=== PATIENT | female | born 1940 | race Caucasian/White ===

== ENCOUNTER → 2017-06-26 | Outpatient (CLI) | payer MEDICARE, OTHER ==
[2017-06-26 12:47] LABS: ABSOLUTE EOSINOPHILS # (AUTO) 0.2 10^3/uL (0.0-0.6); ABSOLUTE LYMPHOCYTES (AUTO) 1.6 10^3/uL (0.5-4.7); ABSOLUTE MONOCYTES (AUTO) 0.8 10^3/uL (0.1-1.4); BASOPHILS % (AUTO) 0.6 % (0-2); EOSINOPHILS % (AUTO) 3.2 % (0-6); HEMATOCRIT 38.1 % (36.0-47.0); HEMOGLOBIN 12.8 g/dL (12.0-15.5); MEAN CORPUSCULAR HEMOGLOBIN 28.8 pg (27.0-33.4); MEAN CORPUSCULAR HGB CONC 33.6 g/dL (32.0-36.0); MEAN CORPUSCULAR VOLUME 86 fl (80-97); MONOCYTES % (AUTO) 10.8 % (3-13); PLATELET COUNT 180 10^3/uL (150-450); RED BLOOD COUNT 4.46 10^6/uL (3.72-5.28); RED CELL DISTRIBUTION WIDTH 14.6 % (11.5-14.0); SEGMENTED NEUTROPHILS % (AUTO) 64.4 % (42-78); TOTAL CELLS COUNTED % (AUTO) 100 %; WHITE BLOOD COUNT 7.8 10^3/uL (4.0-10.5)
[2017-06-26 13:10] LABS: ALANINE AMINOTRANSFERASE 42 U/L (9-52); ALKALINE PHOSPHATASE 143 U/L (38-126); ANION GAP 9 (5-19); ASPARTATE AMINO TRANSFERASE 51 U/L (14-36); BILIRUBIN,DIRECT 0.3 mg/dL (0.0-0.4); BILIRUBIN,TOTAL 0.6 mg/dL (0.2-1.3); BLOOD UREA NITROGEN 19 mg/dL (7-20); CALCIUM 10.2 mg/dL (8.4-10.2); CARBON DIOXIDE 28 mmol/L (22-30); CHLORIDE 103 mmol/L (98-107); GLUCOSE 121 mg/dL (75-110); POTASSIUM 5.4 mmol/L (3.6-5.0); SODIUM 140.3 mmol/L (137-145)
== END ==
LOC: OD 10:51
PROVIDERS: ATTEND Orthopaedic Surgery Hand Surgery
DX: E11.9 Type 2 diabetes mellitus without complications (principal); Z11.2 Encounter for screening for other bacterial diseases
CPT/HCPCS: 36415; 80053; 85025; 87070

== ENCOUNTER → 2017-10-10 | Outpatient (CLI) | payer MEDICARE, OTHER ==
--- NOTE | 2017-10-10 10:46 | RADIOLOGY REPORT (SQ) ---
EXAM DESCRIPTION: CT ABD/PELVIS WITH IV ORAL COMPLETED DATE/TIME: 10/10/2017 8:49 am REASON FOR STUDY: RLQ ABD MASS (R19.03 R19.03 RIGHT LOWER QUADRANT ABDOMINAL SWELLING, MASS AND LUM COMPARISON: 2016. TECHNIQUE: CT scan of the abdomen and pelvis performed with intravenous and oral contrast using corwin tamy scanning technique with dynamic intravenous contrast injection. Images reviewed with lung, soft t issue, and bone windows. Reconstructed coronal and sagittal MPR images reviewed. Delayed images for e valuation of the urinary system also acquired. All images stored on PACS. All CT scanners at this facility use dose modulation, iterative reconstruction, and/or weight based d osing when appropriate to reduce radiation dose to as low as reasonably achievable (ALARA). [facility]: Dose Right [facility]: CareDose [facility]: Dose Right [facility]: Teradose 4D [facility]: Freedom2 CONTRAST TYPE AND DOSE: contrast/concentration: Isovue 370.00 mg/ml; Total Contrast Delivered: 67.6 ml; Total Saline Delivered: 17.8 ml RENAL FUNCTION: Creatinine 0.8. RADIATION DOSE: CT Rad equipment meets quality standard of care and radiation dose reduction techniq ues were employed. CTDIvol: 26.0 - 29.2 mGy. DLP: 2714 mGy-cm.. LIMITATIONS: None. FINDINGS: LOWER CHEST: Lung bases clear. Mild cardiomegaly. Mild coronary calcification. Small hi atal hernia with suggestion of adjacent varices. LIVER: Macro nodular appearance. Small low density area in the tip of the right hepatic lobe measure s less than 1.5 cm, stable. No developing mass or abnormal enhancement. Mild perihepatic fluid. No nocclusive thrombus in the main portal vein with some minimal extension into the right portal vein. No gross superior mesenteric or splenic thrombus. IVC patent. SPLEEN: Normal size. No focal lesions. PANCREAS: No masses. No significant calcifications. No adjacent inflammation or peripancreatic fluid collections. Pancreatic duct not dilated. GALLBLADDER: Surgically absent. No duct dilatation. ADRENAL GLANDS: No significant masses or asymmetry. RIGHT KIDNEY AND URETER: No solid masses. No significant calcification. No hydronephrosis or hydroure ter. LEFT KIDNEY AND URETER: No solid masses. No significant calcification. No hydronephrosis or hydrouret er. AORTA AND VESSELS: No aneurysm. No dissection. Renal arteries, SMA, celiac without stenosis. RETROPERITONEUM: No retroperitoneal adenopathy, hemorrhage or masses. BOWEL AND PERITONEAL CAVITY: No evidence of mechanical bowel obstruction. Areas of wall thickening i n the colon. Most pronounced in the transverse colon. This may be artifact, related to liver diseas e and ascites. Colitis is in the differential, however. Mild ascites as above. No bulky adenopathy or free air. APPENDIX: Normal. PELVIS: Mild free fluid. Bladder unremarkable. ABDOMINAL WALL: Subcutaneous edema over the lower abdomen. No bowel containing hernia or mass detect ed. BONES: Osteopenia and spondylosis. OTHER: No other significant finding. IMPRESSION: 1. Findings consistent with cirrhosis and portal hypertension. Includes macro nodular l iver, varices and mild ascites. Note is also made of mild nonocclusive thrombus in the portal conflu ence. Other veins look patent. TECHNICAL DOCUMENTATION: JOB ID: [id number] Quality ID # [id number]: Final reports with documentation of one or more dose reduction techniques (e.g., Au tomated exposure control, adjustment of the mA and/or kV according to patient size, use of iterative reconstruction technique) 2010 [employer]- All Rights Reserved Reading location - IP/workstation name: [email or web address]
== END ==
LOC: RAD 07:54
PROVIDERS: ATTEND Physician Assistant
DX: R19.03 Right lower quadrant abdominal swelling, mass and lump (principal); K74.60 Unspecified cirrhosis of liver; K76.6 Portal hypertension; I85.00 Esophageal varices without bleeding
CPT/HCPCS: 74177; 82565

== ENCOUNTER → 2017-10-12 | Outpatient (CLI) | payer MEDICARE, OTHER | LOC: OD 14:29 | PROVIDERS: ATTEND Physician Assistant | DX: I49.9 Cardiac arrhythmia, unspecified (principal) | CPT/HCPCS: 36415; 82140 ==

== ENCOUNTER → 2018-02-25 | Outpatient (CLI) | payer MEDICARE, OTHER ==
[~2018-02-25] MED LIST: LIDOCAINE 2% INJ-PF (100 MG/5 ML) SYRINGE ONE; ONDANSETRON HCL INJ/PF 4 MG/2 ML SDV ONE; PROPOFOL INJ 200 MG/20 ML VIAL IV ONE
[2018-02-27 15:28] VITALS: BP 130/58
--- NOTE | 2018-02-27 19:35 | EKG REPORT ---
SEVERITY:- ABNORMAL ECG - SINUS RHYTHM RIGHT BUNDLE BRANCH BLOCK PROBABLE ANTEROSEPTAL INFARCT, AGE INDETERM : Confirmed by: Sharonda Toscano MD 27-Feb-2018 19:34:24
== END ==
LOC: LAB 10:40 → EDSTATUS 03-01 10:30
PROVIDERS: ATTEND Internal Medicine Gastroenterology
DX: Z01.810 Encounter for preprocedural cardiovascular examination (principal); Z01.812 Encounter for preprocedural laboratory examination; Z01.818 Encounter for other preprocedural examination
CPT/HCPCS: 93005; 93010; J2001; J2405; J2704

== ENCOUNTER → 2018-02-25 | Outpatient (CLI) | payer MEDICARE, OTHER ==
[2018-02-25 11:16] LABS: INTERNATIONAL RATION (INR) 1.22
[2018-02-25 11:27] LABS: ALANINE AMINOTRANSFERASE 53 U/L (9-52); ALBUMIN 3.5 g/dL (3.5-5.0); ALKALINE PHOSPHATASE 347 U/L (38-126); ANION GAP 11 (5-19); ASPARTATE AMINO TRANSFERASE 137 U/L (14-36); BILIRUBIN,TOTAL 1.5 mg/dL (0.2-1.3); BLOOD UREA NITROGEN 38 mg/dL (7-20); CALCIUM 9.8 mg/dL (8.4-10.2); CARBON DIOXIDE 24 mmol/L (22-30); CHLORIDE 100 mmol/L (98-107); GLUCOSE 157 mg/dL (75-110); POTASSIUM 5.3 mmol/L (3.6-5.0); TOTAL PROTEIN 7.3 g/dL (6.3-8.2)
[2018-02-26 11:39] LABS: HEPATITIS A AB IGM Negative (Negative); HEPATITIS B CORE AB IGM Negative (Negative); HEPATITS B SURFACE ANTIGEN Negative (Negative)
[2018-02-26 11:51] LABS: HEPATITIS C VIRUS ANTIBODY <0.1 s/co ratio (0.0-0.9)
[2018-02-26 13:35] LABS: ANTINUCLEAR ANTIBODIES Negative (Negative)
[2018-02-26 15:20] LABS: MITOCHONDRIAL (M2) ANTIBODY 6.7 Units (0.0-20.0)
[2018-02-26 18:47] LABS: CERULOPLASMIN 42.8 mg/dL (19.0-39.0)
== END ==
LOC: OD 10:26
PROVIDERS: ATTEND Internal Medicine Gastroenterology
DX: K74.60 Unspecified cirrhosis of liver (principal)
CPT/HCPCS: 36415; 80048; 80074; 80076; 82390; 82728; 85610; 86038; 86256

== ENCOUNTER 2018-03-06 03:58 | Inpatient (IN) | payer MEDICARE, OTHER ==
[2018-03-06] MEDS ORDERED: ONDANSETRON HCL INJ/PF 4 MG/2 ML SDV IV ONE (04:29)
--- NOTE | 2018-03-06 04:29 | ER Document Report ---
ED General - General Chief Complaint: Altered Mental Status Stated Complaint: WEAKNESS Time Seen by Provider: 03/06/18 04:19 Notes: Patient is a 77-year-old female that comes to the emergency department for chief complaint of a fall and altered mental status. Family member states that patient had been complaining of nausea and she vomited, later she called out to them and they found she had fallen face down on her floor in her bedroom, after this that she started acting confused and responding less, she vomited again in route to the emergency department. At baseline patient is not confused and is conversational, self-sufficient. Past medical history includes cirrhosis, esophageal varices, COPD, hypertension, type 2 diabetes. Family denies hematemesis. She is not on a blood thinner. Patient will answer some questions , she denies any locations of pain. TRAVEL OUTSIDE OF THE [place] IN LAST 30 DAYS: No - Related Data Allergies/Adverse Reactions: ciprofloxacin [From Cipro] Allergy (Severe, Verified 02/27/18 09:35) Rash, itching citalopram hydrobromide [From Celexa] Allergy (Severe, Verified 02/27/18 09:35) Rash, itching clarithromycin [From Biaxin] Allergy (Severe, Verified 02/27/18 09:35) Rash, itching telmisartan [From Micardis] Allergy (Severe, Verified 02/27/18 09:35) Rash, itching Past Medical History - General Information source: Patient - Social History Smoking Status: Never Smoker Frequency of alcohol use: None Drug Abuse: None Lives with: Family Family History: Reviewed & Not Pertinent Patient has suicidal ideation: No Patient has homicidal ideation: No - Past Medical History Cardiac Medical History: Reports: Hx Congestive Heart Failure, Hx Hypercholesterolemia, Hx Hypertension - on meds Denies: Hx Coronary Artery Disease, Hx Heart Attack Pulmonary Medical History: Reports: Hx COPD - on meds Denies: Hx Asthma, Hx Bronchitis, Hx Pneumonia Neurological Medical History: Denies: Hx Cerebrovascular Accident, Hx Seizures Endocrine Medical History: Reports: Hx Diabetes Mellitus Type 2 Renal/ Medical History: Denies: Hx Peritoneal Dialysis GI Medical History: Denies: Hx Hepatitis, Hx Hiatal Hernia, Hx Ulcer Musculoskeletal Medical History: Reports Hx Arthritis - Hands hx of Psychiatric Medical History: Reports: Hx Depression Infectious Medical History: Denies: Hx Hepatitis Past Surgical History: Reports: Hx Abdominal Surgery - hernia, Hx Cholecystectomy, Hx Herniorrhaphy, Hx Kidney (Renal Surgery), Hx Orthopedic Surgery. Denies: Hx Mastectomy, Hx Open Heart Surgery, Hx Pacemaker - Immunizations Hx Diphtheria, Pertussis, Tetanus Vaccination: Yes - 10/31/2012 Hx Pneumococcal Vaccination: 11/02/12 Review of Systems - Review of Systems Constitutional: See HPI EENT: No symptoms reported Cardiovascular: No symptoms reported Respiratory: No symptoms reported Gastrointestinal: See HPI Genitourinary: No symptoms reported Female Genitourinary: No symptoms reported Musculoskeletal: No symptoms reported Skin: No symptoms reported Hematologic/Lymphatic: No symptoms reported Neurological/Psychological: See HPI Physical Exam - Vital signs Vitals: Resp Pulse Ox 20 93 03/06/18 04:05 03/06/18 04:05 - Notes Notes: GENERAL: Patient restless, eyes closed, rolling back and forth on the bed HEAD: Normocephalic, atraumatic. EYES: Pupils equal, round, and reactive to light. Extraocular movements intact. ENT: Oral mucosa moist, tongue midline. NECK: Full range of motion. Supple. Trachea midline. LUNGS: Clear to auscultation bilaterally, no wheezes, rales, or rhonchi. No respiratory distress. HEART: Regular rate and rhythm. No murmur ABDOMEN: Soft, non-tender. Non-distended. Bowel sounds present in all 4 quadrants. EXTREMITIES: Moves all 4 extremities spontaneously. No edema, normal radial and dorsalis pedis pulses bilaterally. No cyanosis. Skin abrasion to right lateral forearm and proximal arm. 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 BACK: no cervical, thoracic, lumbar midline tenderness. No saddle anesthesia, normal distal neurovascular exam. NEUROLOGICAL: Alert and oriented x3. Normal speech. [cranial nerves II through XII grossly intact]. PSYCH: Normal affect, normal mood. SKIN: Warm, dry, normal turgor. No rashes or lesions noted. Course - Re-evaluation Re-evalutation: Patient obviously confused, follows minimal commands, disoriented and restless. Has skin abrasions over the right arm, old bruises over the face, no other traumatic findings noted over the back, abdomen, chest, extremities. Vital signs unremarkable. Patient immediately sent to CAT scan to rule out intracranial hemorrhage, this was negative, CAT scan of the neck unremarkable, chest x-ray unremarkable. CBC shows mild leukocytosis, chemistry shows mild renal insufficiency and mild hyperkalemia at 5.4. Suspect hepatic encephalopathy. Discussed with Dr. Griffin. Family states that patient stopped taking her Xifaxan 2-3 days ago, states she told them it was giving her diarrhea and she did not want to take it. Ammonia very elevated at 164, given lactulose. Urine shows infection, possible pyelonephritis, however patient is afebrile, not tachycardic, not hypotensive. Cultures placed. Given Rocephin. Discussed with family, will discuss with hospitalist for admission. 03/06/18 07:[address] Michelle, patient will be accepted to the hospital full admission. - Vital Signs Vital signs: Temp Pulse Resp BP Pulse Ox 21 H 152/86 H 95 03/06/18 06:15 03/06/18 06:15 03/06/18 06:15 - Laboratory Result Diagrams: 03/06/18 04:20 03/06/18 04:20 Laboratory results interpreted by me: 03/06/18 03/06/18 03/06/18 04:20 04:20 04:20 WBC 11.9 H Hgb 11.2 L Hct 33.2 L RDW 18.1 H Seg Neutrophils % 80.1 H Lymphocytes % 9.4 L Absolute Neutrophils 9.5 H PT 16.5 H APTT 36.6 H VBG pH Potassium 5.4 H BUN 40 H Creatinine 1.65 H Est GFR ( Amer) 36 L Est GFR (Non-Af Amer) 30 L Glucose 130 H Calcium 10.3 H Total Bilirubin 1.5 H Direct Bilirubin 1.1 H AST 122 H Alkaline Phosphatase 351 H Ammonia Urine Protein Urine Urobilinogen Ur Leukocyte Esterase 03/06/18 03/06/18 03/06/18 05:59 05:59 06:35 WBC Hgb Hct RDW Seg Neutrophils % Lymphocytes % Absolute Neutrophils PT APTT VBG pH 7.28 L Potassium BUN Creatinine Est GFR ( Amer) Est GFR (Non-Af Amer) Glucose Calcium Total Bilirubin Direct Bilirubin AST Alkaline Phosphatase Ammonia 164.2 H Urine Protein 100 H Urine Urobilinogen 2.0 H Ur Leukocyte Esterase LARGE H Discharge - Discharge Clinical Impression: Hepatic encephalopathy Altered mental status Qualifiers: Altered mental status type: unspecified Qualified Code(s): R41.82 - Altered mental status, unspecified Urinary tract infection Qualifiers: Urinary tract infection type: site unspecified Hematuria presence: without hematuria Qualified Code(s): N39.0 - Urinary tract infection, site not specified Condition: Serious Disposition: ADMITTED INPATIENT Admitting Provider: Hospitalist - Dr. Michelle Unit Admitted: Telemetry Referrals: CRYSTAL ADKINS MD [ACTIVE STAFF] - Follow up as needed
[2018-03-06 04:39] LABS: ABSOLUTE LYMPHOCYTES (AUTO) 1.1 10^3/uL (0.5-4.7); ABSOLUTE MONOCYTES (AUTO) 1.2 10^3/uL (0.1-1.4); ABSOLUTE NEUT (AUTO) 9.5 10^3/uL (1.7-8.2); BASOPHILS % (AUTO) 0.3 % (0-2); EOSINOPHILS % (AUTO) 0.2 % (0-6); HEMATOCRIT 33.2 % (36.0-47.0); HEMOGLOBIN 11.2 g/dL (12.0-15.5); LYMPHOCYTES % (AUTO) 9.4 % (13-45); MEAN CORPUSCULAR HEMOGLOBIN 28.1 pg (27.0-33.4); MEAN CORPUSCULAR HGB CONC 33.7 g/dL (32.0-36.0); MEAN CORPUSCULAR VOLUME 83 fl (80-97); PLATELET COUNT 273 10^3/uL (150-450); RED BLOOD COUNT 3.99 10^6/uL (3.72-5.28); RED CELL DISTRIBUTION WIDTH 18.1 % (11.5-14.0); SEGMENTED NEUTROPHILS % (AUTO) 80.1 % (42-78); TOTAL CELLS COUNTED % (AUTO) 100 %; WHITE BLOOD COUNT 11.9 10^3/uL (4.0-10.5)
[2018-03-06] MEDS ORDERED: MIDAZOLAM 2 MG/2 ML INJ IV ONE ×2 (04:39→04:41)
[2018-03-06 04:44] LABS: INTERNATIONAL RATION (INR) 1.27; PROTHROMBIN TIME 16.5 SEC (11.4-15.4)
[2018-03-06 04:45] LABS: PARTIAL THROMBOPLASTIN TIME 36.6 SEC (23.5-35.8)
[2018-03-06 05:04] LABS: ALANINE AMINOTRANSFERASE 45 U/L (9-52); ALBUMIN 3.6 g/dL (3.5-5.0); ALKALINE PHOSPHATASE 351 U/L (38-126); ANION GAP 10 (5-19); ASPARTATE AMINO TRANSFERASE 122 U/L (14-36); BILIRUBIN,DIRECT 1.1 mg/dL (0.0-0.4); BILIRUBIN,TOTAL 1.5 mg/dL (0.2-1.3); BLOOD UREA NITROGEN 40 mg/dL (7-20); CALCIUM 10.3 mg/dL (8.4-10.2); CARBON DIOXIDE 24 mmol/L (22-30); CHLORIDE 105 mmol/L (98-107); CREATINE KINASE 97 U/L (30-135); GLUCOSE 130 mg/dL (75-110); POTASSIUM 5.4 mmol/L (3.6-5.0); SODIUM 139.4 mmol/L (137-145); TOTAL PROTEIN 7.6 g/dL (6.3-8.2)
--- NOTE | 2018-03-06 05:06 | RADIOLOGY REPORT (SQ) ---
EXAM DESCRIPTION: XR CHEST 1 VIEW COMPLETED DATE/TME: 03/06/2018 04:27 CLINICAL HISTORY: AMS COMPARISON: None. FINDINGS: Single frontal view of the chest. Tortuosity thoracic aorta. Heart is not enlarged. Low lung volumes. Leads overlie the chest. No consolidation, pneumothorax, or pleural effusion. No displaced rib fractures identified. Upper abdominal soft tissues are unremarkable. IMPRESSION: 1. No acute pulmonary process identified.
--- NOTE | 2018-03-06 05:33 | RADIOLOGY REPORT (SQ) ---
CLINICAL DATA: 77-year-old female status post fall with head injury and confusion TECHNICAL DATA: Multiple axial CT images of the brain were performed followed by sagittal and coronal reconstructed images. The CT study is performed according to ALARA (as low as reasonably achievable) or ALARA/IMAGE GENTLY, with automatic adjustment of mA and/or kV according to patient size. Comparisons: Prior head CT performed on 08/10/2015.. FINDINGS: There is no evidence of mass, acute mass effect or midline shift. There are no acute extra-axial fluid collections. There is no evidence of acute intracranial hemorrhage. The cerebral sulci and ventricles are prominent consistent with mild cerebral volume loss. There are scattered patchy areas of decreased subcortical and periventricular attenuation most consistent with mild chronic microangiopathy.. . There is no significant mucosal thickening of the paranasal sinuses. The mastoid air cells are clear. The orbital contents are grossly unremarkable. No acute osseous abnormalities are identified. There appears to be a partially empty sella turcica. IMPRESSION: 1. There is no evidence of acute intracranial pathology. 2. Mild cerebral atrophy with findings consistent with chronic microangiopathy. Overall, no significant change since the prior study.
[2018-03-06] MEDS ORDERED: LORAZEPAM INJ 2 MG/1 ML VIAL IV ONE ×3 (05:42→08:45)
--- NOTE | 2018-03-06 05:42 | RADIOLOGY REPORT (SQ) ---
EXAM DESCRIPTION: CT cervical spine without contrast 03/06/2018 4:32 AM CDT CLINICAL HISTORY: 77 years, Female, fall, head injury COMPARISON: None. TECHNIQUE: Volumetric CT acquisition was performed through the cervical spine. Images in the axial, coronal, and sagittal planes were presented for interpretation. This exam was performed according to our departmental dose-optimization program, which includes automated exposure control, adjustment of the mA and/or kV according to patient size and/or use of iterative reconstruction technique. FINDINGS: There are 7 cervical type vertebral bodies in normal anatomic alignment. There is no evidence of acute fracture or dislocation. There are degenerative changes throughout the mid and lower cervical spine. At the C2/C3 level, there is normal disc space height with mild uncovertebral hypertrophy bilaterally. There is mild neural foraminal narrowing on the right and no significant narrowing of the left. At the C3/C4 level, there is loss of disc space height with a small left paracentral disc osteophyte complex. There is moderate uncovertebral hypertrophy on the left. There is moderate neural foraminal narrowing on the left and no significant osteophyte. At the C4/C5 level, there is loss of disc space height with mild uncovertebral hypertrophy bilaterally. There is mild neural foraminal narrowing on the left and no significant narrowing on the right. At the C5/C6 level, there is normal disc space height with mild uncovertebral hypertrophy bilaterally. There is no significant canal or neural foraminal narrowing bilaterally. At the C6/C7 level, there is loss of disc space height with a moderate broad-based disc osteophyte complex. There is mild uncovertebral hypertrophy on the left. There is moderate neuroforaminal narrowing on the left and no significant narrowing of the right. The paravertebral and prevertebral soft tissues are normal. There are no fluid collections or evidence of soft tissue thickening. The musculature and soft tissue structures of the neck are within normal limits. There are no pathologically enlarged lymph nodes. The visualized vasculature is normal. The visualized portions of the brain and skull base are grossly unremarkable. Limited evaluation of the lung apices demonstrate no gross abnormalities. IMPRESSION: 1. No acute fracture or dislocation of the cervical spine. 2. Multilevel degenerative changes.
[2018-03-06 06:24] LABS: VENOUS BLOOD BASE EXCESS -2.8 mmol/L; VENOUS BLOOD HCO3 24.3 mmol/L (20-32); VENOUS BLOOD PCO2 53.1 mmHg (35-63); VENOUS BLOOD PH 7.28 (7.30-7.42)
[2018-03-06] MEDS ORDERED: LACTULOSE SYRUP 20 GM/30 ML UDCUP PR ONE ×2 (06:45→08:15)
[2018-03-06 07:08] LABS: APPEARANCE,URINE TURBID; BILIRUBIN,URINE NEGATIVE (NEGATIVE); COLOR,URINE AMBER; GLUCOSE, URINE NEGATIVE (NEGATIVE); KETONES,URINE NEGATIVE (NEGATIVE); LEUKOCYTE ESTERASE,URINE LARGE (NEGATIVE); NITRITE,URINE NEGATIVE (NEGATIVE); PROTEIN,URINE 100 mg/dL (NEGATIVE); URINE SPECIFIC GRAVITY 1.017
[2018-03-06] MEDS ORDERED: CEFTRIAXONE INJ 1000 MG VIAL IV ONE (07:23)
[2018-03-06] MEDS ORDERED: DEXTROSE 50%-WATER 25 GM/50 ML DISP.SYRIN IV PRN ×6 (09:15→09:29)
[2018-03-06] MEDS ORDERED: DEXTROSE 40% GEL 15 GM TUBE PO PRN ×6 (09:15→09:29)
[2018-03-06] MEDS ORDERED: GLUCAGON,HUMAN RECOMB 1 MG INJ SUBCUT PRN (09:15)
[2018-03-06] MEDS ORDERED: HALOPERIDOL LACTATE INJ 5 MG/1 ML VIAL IV PRN (09:20)
[2018-03-06] MEDS ORDERED: GLUCAGON,HUMAN RECOMB 1 MG INJ IM PRN ×2 (09:20→09:29)
[2018-03-06] MEDS ORDERED: INSULIN LISPRO 100 UNIT/ML 3 ML VIAL SUBCUT PRN (09:20)
[2018-03-06] MEDS ORDERED: CEFTRIAXONE 1 GM/D5W RTU 50 ML IV SCH (10:00)
[2018-03-06] MEDS ORDERED: NORMAL SALINE 1000 ML 1,000 ML IV ONE ×2 (10:30→11:30)
--- NOTE | 2018-03-06 11:04 | EKG REPORT ---
SEVERITY:- ABNORMAL ECG - SINUS RHYTHM RIGHT BUNDLE BRANCH BLOCK : Confirmed by: Chuck Suero 06-Mar-2018 11:04:00
[2018-03-06] MEDS ORDERED: NORMAL SALINE 500 ML with OCTREOTIDE ACETATE 500 MCG IV PRN ×2 (11:17)
[2018-03-06] MEDS ORDERED: PROPOFOL INJ 200 MG/20 ML VIAL IV ONE (11:59)
[2018-03-06 12:01] LABS: ARTERIAL BLOOD BASE EXCESS -13.3 mmol/L; ARTERIAL BLOOD FIO2 15L; ARTERIAL BLOOD H2CO3 1.02 mmol/L (1.05-1.35); ARTERIAL BLOOD HCO3 13.4 mmol/L (20-24); ARTERIAL BLOOD O2 SATURATION 97.1 % (94-98); ARTERIAL BLOOD PCO2 33.8 mmHg (35-45); ARTERIAL BLOOD PH 7.22 (7.35-7.45); ARTERIAL BLOOD PO2 109.5 mmHg (80-100); ARTERIAL BLOOD TOTAL CO2 14.4 mmol/L (21-25)
[2018-03-06] MEDS: MIDAZOLAM HCL 50 MG/100 ML RTUINJ IV PRN ×2 (12:15→18:50)
--- NOTE | 2018-03-06 12:26 | RADIOLOGY REPORT (SQ) ---
EXAM DESCRIPTION: CHEST SINGLE VIEW COMPLETED DATE/TIME: 03/06/2018 12:14 pm REASON FOR STUDY: er 8 tube placement COMPARISON: CT chest 02/12/2014 Chest films 03/06/2018 EXAM PARAMETERS: NUMBER OF VIEWS: One view. TECHNIQUE: Single frontal radiographic view of the chest acquired. RADIATION DOSE: NA LIMITATIONS: None. FINDINGS: LUNGS AND PLEURA: Airspace disease in the right middle and lower lobe, edema versus pneumo jena. Left lung grossly clear. No pleural effusion or pneumothorax MEDIASTINUM AND HILAR STRUCTURES: No masses. Contour normal. HEART AND VASCULAR STRUCTURES: Moderate cardiomegaly BONES: No acute findings. HARDWARE: Endotracheal tube tip midtrachea. Nasogastric tube tip and side port in the stomach OTHER: No other significant finding. IMPRESSION: Endotracheal and nasogastric tubes in good positioning. Asymmetric right-sided middle and lower lobe airspace disease, aspiration pneumonia versus asymmetric pulmonary edema TECHNICAL DOCUMENTATION: JOB ID: [id number] [employer]- All Rights Reserved Reading location - IP/workstation name: [email or web address]
[2018-03-06] MEDS ORDERED: FENTANYL CITRATE INJ/PF 100 MCG/2 ML AMPUL ONE (12:38)
[2018-03-06] MEDS ORDERED: NOREPINEPHRINE BITARTRATE INJ/PF 4 MG/4 ML SDV IV ONE (12:50)
[2018-03-06] MEDS ORDERED: FENTANYL CITRATE INJ/PF 100 MCG/2 ML AMPUL IV PRN (12:52)
[2018-03-06] MEDS ORDERED: VANCOMYCIN HCL 0 MG in DEXTROSE 5%-WATER 250 ML IV NR (13:00)
[2018-03-06] MEDS: DEXTROSE 5%-WATER 250 ML with NOREPINEPHRINE BITARTRATE 4 MG IV PRN ×6 (13:00→23:40)
[2018-03-06] MEDS ORDERED: SUCCINYLCHOLINE CHLORIDE INJ 200 MG/10 ML VIAL ONE (13:57)
[2018-03-06] MEDS ORDERED: DEXTROSE 5%-WATER 250 ML with NOREPINEPHRINE BITARTRATE 4 MG IV PRN ×2 (14:21)
[2018-03-06] MEDS: HEPARIN SOD (PORCINE) 5,000 UNIT/ML 1 ML SYRINGE SUBCUT SCH ×2 (15:05→22:57)
[2018-03-06] MEDS ORDERED: LEVALBUTEROL HCL NEB 1.25 MG/3 ML AMPUL NEB PRN (15:22)
[2018-03-06] MEDS: DEXTROSE 5%-WATER 250 ML with PHENYLEPHRINE HCL 40 MG IV PRN ×2 (16:15)
--- NOTE | 2018-03-06 16:24 | RADIOLOGY REPORT (SQ) ---
EXAM DESCRIPTION: CHEST SINGLE VIEW COMPLETED DATE/TIME: 03/06/2018 3:48 pm REASON FOR STUDY: central line, ETT and OG tube placement COMPARISON: AP chest 03/06/2018, 12 noon EXAM PARAMETERS: NUMBER OF VIEWS: One view. TECHNIQUE: Single frontal radiographic view of the chest acquired. RADIATION DOSE: NA LIMITATIONS: None. FINDINGS: LUNGS AND PLEURA: Persistent consolidation in the right middle and lower lobe. Remainder of the lungs are well inflated and clear. No pleural effusions. No pneumothorax. MEDIASTINUM AND HILAR STRUCTURES: No masses. Contour normal. HEART AND VASCULAR STRUCTURES: Stable cardiomegaly BONES: No acute findings. HARDWARE: Endotracheal tube tip 5 cm above the iglesia. Right jugular central line tip in the right a trium. Nasogastric tube tip and side port in the stomach. OTHER: No other significant finding. IMPRESSION: Interval placement of a right-sided triple-lumen catheter with the tip in the right atri um. No pneumothorax. Endotracheal tube nasogastric tube in good positioning Persisting consolidation in the right middle and lower lobe, unchanged from earlier today TECHNICAL DOCUMENTATION: JOB ID: [id number] [employer]- All Rights Reserved Reading location - IP/workstation name: [email or web address]
[2018-03-06] MEDS: LACTULOSE SYRUP 20 GM/30 ML UDCUP PR SCH (16:30)
[2018-03-06] MEDS ORDERED: LANSOPRAZOLE 15 MG TAB.RAP.DR PO SCH (17:00)
[2018-03-06] MEDS ORDERED: FENTANYL CITRATE INJ/PF 100 MCG/2 ML AMPUL IV ONE (17:00)
[2018-03-06 17:02] LABS: ARTERIAL BLOOD BASE EXCESS -13.6 mmol/L; ARTERIAL BLOOD H2CO3 0.53 mmol/L (1.05-1.35); ARTERIAL BLOOD HCO3 9.5 mmol/L (20-24); ARTERIAL BLOOD O2 SATURATION 98.3 % (94-98); ARTERIAL BLOOD PH 7.35 (7.35-7.45); ARTERIAL BLOOD PO2 119.8 mmHg (80-100); ARTERIAL BLOOD TOTAL CO2 10.1 mmol/L (21-25)
[2018-03-06 17:09] LABS: ARTERIAL BLOOD FIO2 75%
[2018-03-06 17:11] LABS: ARTERIAL BLOOD PCO2 17.7 mmHg (35-45)
--- NOTE | 2018-03-06 17:51 | OPERATIVE REPORT E ---
Operative Report NAME: NARGIS DUNLAP : 1940 AGE: 77Y DATE OF SURGERY: 03/06/2018 ROOM: [facility] PREOPERATIVE DIAGNOSIS: POOR VEINS FOR IV ACCESS AND PATIENT NEEDED PRESSORS. POSTOPERATIVE DIAGNOSIS: POOR VEINS FOR IV ACCESS AND PATIENT NEEDED PRESSORS. OPERATION: Placement of right internal jugular vein triple-lumen catheter under ultrasound guidance. SURGEON: NICOLE MANN M.D. ANESTHESIA: Local. INDICATIONS: This is a 77-year-old female who was noted to be hypotensive in the intensive care unit after she was intubated. She has only 1 line available and needed more IV access, especially as patient will need pressors. The IV also appears to be tentative. PROCEDURE: Patient was placed in just a flat position, since the bed could not be Trendelenburg. Right side of the neck was then prepped and draped in the usual sterile fashion. With the use of the ultrasound, the right internal jugular vein was then identified and lidocaine infiltrated along the skin, where the internal jugular vein appears to be. The internal jugular vein was then punctured with a small needle and the small guidewire passed through the needle into the area of the superior vena cava. The puncture site was subsequently enlarged. A triple-lumen catheter was inserted through the guidewire towards the superior vena cava. About 6 cm of the catheter was threaded through the internal jugular vein. Guidewire was removed and all the 3 ports aspirated, bled easily and instilled saline easily. The catheter was then anchored to the skin with 3-0 silk. Sterile Bio Patch and dressing were then placed over the catheter. Chest x-ray will be obtained for placement. Patient tolerated procedure well. DICTATING PHYSICIAN: NICOLE MANN M.D. [id number] PHY#: [id number] ID: [id number] JOB#: [id number] ACCT: [id number] cc:NICOLE MANN M.D. >
[2018-03-06] MEDS ORDERED: VANCOMYCIN HCL 750 MG in DEXTROSE 5%-WATER 250 ML IV SCH (18:00)
[2018-03-06] MEDS: PIPERACILLIN SODIUM/TAZOBACTAM 3.375 GM in NORMAL SALINE 100 ML IV SCH (18:14)
--- NOTE | 2018-03-06 18:16 | PDOC H&P ---
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 Travis her cna instructor as outpatient. Source of history is daughter who is living with the patient. Patient was brought in by family after at 1:30 AM last night they heard her yelling and found her on the floor. Patient is on rifaximin for her cirrhosis however she stopped it about 3 days ago because it was making her nauseous. 2 days ago she had one episode of nonbilious, nonbloody vomiting and also for the last week she has been complaining of feeling weak. Per daughter who is a primary caregiver she was not complaining of any fever, chest pain, shortness of breath, abdominal pain, diarrhea, constipation or any urinary symptoms. As per family patient is incontinent and has had bladder surgery with recurrent UTIs. At baseline patient is independent however living with her daughter here at [facility]. She still drives and manages his her finances. On my initial encounter ED patient was altered, restless and agitated and agitated. Was noticed to have increased labored breathing, nursing staff were not able to get any of her vitals because of her restlessness and agitation. Patient was intubated for airway protection. While in ED patient also dropped her blood pressure and she was given 2 normal saline boluses and started on Levophed. Past Medical History Cardiac Medical History: Reports: Congestive Heart Failure, Hyperlipidema, Hypertension - on meds Denies: Coronary Artery Disease, Myocardial Infarction Pulmonary Medical History: Reports: Chronic Obstructive Pulmonary Disease (COPD ) - on meds Denies: Asthma, Bronchitis, Pneumonia Neurological Medical History: Denies: Seizures Endocrine Medical History: Reports: Diabetes Mellitus Type 2 GI Medical History: Denies: Hepatitis, Hiatal Hernia Musculoskeltal Medical History: Reports: Arthritis - Hands hx of Psychiatric Medical History: Reports: Depression Hematology: Denies: Anemia, Sickle Cell Disease Past Surgical History Past Surgical History: Reports: Cholecystectomy, Herniorrhaphy, Orthopedic Surgery Denies: Amputation, Mastectomy, Pacemaker Social History Lives with: Family Smoking Status: Never Smoker Frequency of Alcohol Use: None Hx Recreational Drug Use: No Hx Prescription Drug Abuse: No - Advance Directive Resuscitation Status: Full Code Surrogate healthcare decision maker:: Had a conversation with her daughter who has medical power of claims attorney. My initial conversation with daughter and her they stated that she is full code. Later in the day with my second conversation with her she stated she may have been well and she has contacted her sister to find it. Family History Family History: Reviewed & Not Pertinent Parental Family History Reviewed: Yes Children Family History Reviewed: Yes Sibling(s) Family History Reviewed.: Yes Medication/Allergy Home Medications: Amlodipine Besylate [Norvasc 5 mg Tablet] 5 mg PO QPM 03/06/18 Atorvastatin Calcium [Lipitor 10 mg Tablet] 10 mg PO QPM 03/06/18 Benazepril HCl [Lotensin] 10 mg PO QAM 03/06/18 Cinnamon Bark [Cinnamon] 1,000 mg PO BID 03/06/18 Fluticasone/Salmeterol [Advair 500-50 Diskus 28 Dose] 1 inh IH Q12 03/06/18 Furosemide [Lasix 40 mg Tablet] 40 mg PO QAM 03/06/18 Glipizide [Glocotrol 5 Mg Tablet] 5 mg PO QPM 03/06/18 Glipizide [Glocotrol 5 Mg Tablet] 10 mg PO QAM 03/06/18 Linagliptin [Tradjenta] 5 mg PO QAM 03/06/18 Montelukast Sodium [Singulair 10 mg Tablet] 10 mg PO QPM 03/06/18 Multivit-Minerals/Folic Acid [One Daily Womens 50 Plus Tab] 0.4 mg PO DAILY 08/19 Rifaximin [Xifaxan 550 mg Tablet] 550 mg PO BID 03/06/18 Ropinirole HCl [Requip] 3 mg PO QPM 03/06/18 Spironolactone [Aldactone] 100 mg PO QAM 03/06/18 Tiotropium Advance [Spiriva Respimat] 4 gm IH DAILY 03/06/18 Venlafaxine HCl ER [Effexor Xr 75 mg Cap.sr] 75 mg PO Q12 03/06/18 Vit C/Vitamin E Acetate/Cranb [Cranberry+ Softgel] 1 each PO BID 03/06/18 Allergies/Adverse Reactions: ciprofloxacin [From Cipro] Allergy (Severe, Verified 02/27/18 09:35) Rash, itching citalopram hydrobromide [From Celexa] Allergy (Severe, Verified 02/27/18 09:35) Rash, itching clarithromycin [From Biaxin] Allergy (Severe, Verified 02/27/18 09:35) Rash, itching telmisartan [From Micardis] Allergy (Severe, Verified 02/27/18 09:35) Rash, itching Review of Systems ROS unobtainable: Due to mental status Physical Exam Vital Signs: Temp Pulse Resp BP Pulse Ox 98.4 F 62 30 H 76/43 L 96 03/06/18 14:42 03/06/18 14:42 03/06/18 14:42 03/06/18 14:42 03/06/18 15:55 Intake & Output 03/05/18 03/06/18 03/07/18 06:59 06:59 06:59 Intake Total 1136 Balance 1136 Weight 104 kg General appearance: PRESENT: severe distress Head exam: PRESENT: other - Left temporal ecchymosis. Respiratory exam: PRESENT: accessory muscle use, decreased breath sounds, symmetrical Cardiovascular exam: PRESENT: RRR. ABSENT: diastolic murmur, rubs, systolic murmur Pulses: PRESENT: normal dorsalis pedis pul GI/Abdominal exam: PRESENT: distended, hernia, normal bowel sounds, soft. ABSENT: guarding, mass, organolmegaly, rebound Extremities exam: PRESENT: full ROM. ABSENT: calf tenderness, clubbing, pedal edema Musculoskeletal exam: PRESENT: normal inspection Neurological exam: PRESENT: altered, other - Moves all extremities. Psychiatric exam: PRESENT: agitated Skin exam: PRESENT: abrasion, other - lt temporal ecchymosis Results Laboratory Results: 03/06/18 03/06/18 03/06/18 11:40 13:39 16:45 Carbonic Acid 1.02 L 0.53 L HCO3/H2CO3 Ratio 13:1 17:1 ABG pH 7.22 L 7.35 ABG pCO2 33.8 L 17.7 L* ABG pO2 109.5 H 119.8 H ABG HCO3 13.4 L 9.5 L ABG O2 Saturation 97.1 98.3 H ABG Base Excess -13.3 -13.6 FiO2 15L 75% Lactic Acid 9.4 H Impressions: Cervical Spine CT 03/06/18 04:26 IMPRESSION: 1. No acute fracture or dislocation of the cervical spine. 2. Multilevel degenerative changes. Head CT 03/06/18 04:26 IMPRESSION: 1. There is no evidence of acute intracranial pathology. 2. Mild cerebral atrophy with findings consistent with chronic microangiopathy. Overall, no significant change since the prior study. Chest X-Ray 03/06/18 04:27 IMPRESSION: 1. No acute pulmonary process identified. Assessment & Plan - Diagnosis (1) Septic shock Is this a current diagnosis for this admission?: Yes Plan: Unidentified source. Mild leukocytosis. UA positive for leukocyte esterase however patient has history of incontinence. Status post 2 L IV bolus. Avoid aggressive volume resuscitation due to underlying cirrhosis and new DONALD. Currently on Levophed and phenylephrine. On Vanco and Zosyn. Follow-up blood and urine culture. (2) Urinary tract infection Qualifiers: Urinary tract infection type: site unspecified Hematuria presence: without hematuria Qualified Code(s): N39.0 - Urinary tract infection, site not specified Is this a current diagnosis for this admission?: Yes Plan: UA positive for leukocyte esterase. Start on Vanco and Zosyn. Patient has history of urinary incontinence. (3) Dyslipidemia Is this a current diagnosis for this admission?: Yes Plan: Start on statins (4) Hx of cirrhosis Plan: As per daughter patient was diagnosed with cirrhosis about 4 months ago. Most likely cryptogenic as the patient's daughter stated that her mom was not an alcoholic and her hepatitis panel, anti-smooth muscle antibody, antimitochondrial antibody has been negative. Patient has had a history of variceal bleeding and she is status post 2 pending and another one scheduled as outpatient with Dr. Travis (5) Hepatic encephalopathy Is this a current diagnosis for this admission?: Yes Plan: Most likely due to noncompliance patient has not been taking her rifaximin for the last 3-4 days due to nausea. Abated ammonia on admission. Continue lactulose. CT head and neck negative for any acute changes. (6) Lactic acidosis Is this a current diagnosis for this admission?: Yes Plan: Likely due to underlying septic shock. Treat underlying infectious process. (7) DONALD (acute kidney injury) Is this a current diagnosis for this admission?: Yes Plan: Likely prerenal. Patient was found to be hypotensive due to underlying sepsis. Will obtain urine sodium and urine creatinine. Followed by renal ultrasound. Monitor electrolytes and volume status.
[2018-03-06 18:44] LABS: CREATINE KINASE MB 9.28 ng/mL (<4.55)
[2018-03-06 18:54] LABS: TROPONIN I 4.82 ng/mL
[2018-03-06 19:08] LABS: URINE CREATININE 165.9 mg/dL (15-278)
[2018-03-06] MEDS ORDERED: CALCIUM GLUCONATE 1000 MG/10 ML INJ IV ONE ×2 (19:10→19:15)
[2018-03-06] MEDS ORDERED: DEXTROSE 5%-WATER 250 ML with VASOPRESSIN 100 UNIT IV PRN ×2 (19:12)
[2018-03-06] MEDS ORDERED: FLUTICASONE/SALMETEROL DISKUS 500-50 MCG/DOSE IH SCH (22:00)
[2018-03-06] MEDS ORDERED: PANTOPRAZOLE SODIUM 40 MG VIAL IV SCH (22:00)
[2018-03-06] MEDS ORDERED: VENLAFAXINE HCL 75 MG CAP.SR.24H PO SCH (22:00)
--- NOTE | 2018-03-06 22:11 | RADIOLOGY REPORT (SQ) ---
CT abdomen and pelvis without contrast on 03/06/2018 at 8:57 PM CLINICAL INDICATION: Abdominal distention, history of esophageal varices TECHNIQUE: Multiple axial images are obtained throughout the abdomen and pelvis without the administration of contrast. This exam was performed according to our departmental dose-optimization program, which includes automated exposure control, adjustment of the mA and/or kV according to patient size and/or use of iterative reconstruction technique. Total DLP is 1361.71 mGy*cm. COMPARISON: 10/10/2017 FINDINGS: Abdomen: There has been development of a moderate-sized right pleural effusion with a trace left pleural effusion. There is right greater than left basilar atelectasis. There is a moderate amount of ascites throughout the abdomen and pelvis. Anasarca is noted in the subcutaneous tissues. The patient is status post cholecystectomy. There is an irregular contour of the liver consistent with changes of cirrhosis. NG tube extends into the distal stomach. Vascular calcifications are noted. The unenhanced solid abdominal organs are otherwise unremarkable. There is no free air within the abdomen. There is no abdominal adenopathy. The abdominal portion of the GI tract is unremarkable. Pelvis: Moderate to large amount of ascites is noted in the pelvis. Rectal tube is noted in place. Pelvic organs appear unremarkable by CT. There is no pelvic adenopathy. Pelvic portion of the GI tract is unremarkable. Degenerative changes are noted in the spine. There is grade 1 spondylolisthesis at L4-5 and L5-S1 secondary to degenerative facet disease. IMPRESSION: 1. Right greater than left pleural effusions with anasarca and ascites consistent with some volume overload and/or third spacing. 2. Irregular contour of the liver consistent with changes of cirrhosis.
[2018-03-06] MEDS ORDERED: FUROSEMIDE INJ/PF 40 MG/4 ML SDV IV ONE (22:30)
[2018-03-07] MEDS: DEXTROSE 5%-WATER 250 ML with PHENYLEPHRINE HCL 40 MG IV PRN ×2 (00:40)
[2018-03-07] MEDS: MIDAZOLAM HCL 50 MG/100 ML RTUINJ IV PRN (00:44)
[2018-03-07] MEDS: LACTULOSE SYRUP 20 GM/30 ML UDCUP PR SCH ×2 (00:47→06:39)
[2018-03-07] MEDS: PIPERACILLIN SODIUM/TAZOBACTAM 3.375 GM in NORMAL SALINE 100 ML IV SCH ×2 (00:48→06:40)
[2018-03-07 01:40] LABS: CREATINE KINASE MB 13.5 ng/mL (<4.55)
[2018-03-07 01:43] LABS: TROPONIN I 8.76 ng/mL
[2018-03-07] MEDS ORDERED: ATROPINE SULFATE INJ 1 MG/10 ML DISP.SYRIN IV ONE ×3 (02:00→02:45)
[2018-03-07] MEDS ORDERED: SODIUM BICARBONATE 8.4% INJ 50 MEQ/50 ML DISP.SYRIN ONE (02:00)
[2018-03-07] MEDS ORDERED: EPINEPHRINE INJ 1 MG/10 ML DISP.SYRIN ONE (02:00)
[2018-03-07] MEDS ORDERED: EPINEPHRINE INJ/PF 1 MG/1 ML AMPULE ONE (02:26)
[2018-03-07] MEDS ORDERED: DEXTROSE 50%-WATER 25 GM/50 ML DISP.SYRIN IV ONE (02:40)
[2018-03-07] MEDS ORDERED: ATROPINE SULFATE INJ 1 MG/1 ML VIAL ONE (02:44)
[2018-03-07 03:01] LABS: ALBUMIN 2.7 g/dL (3.5-5.0); ALKALINE PHOSPHATASE 539 U/L (38-126); BILIRUBIN,TOTAL 3.3 mg/dL (0.2-1.3); BLOOD UREA NITROGEN 37 mg/dL (7-20); CALCIUM 8.7 mg/dL (8.4-10.2); CHLORIDE 109 mmol/L (98-107); GLUCOSE 72 mg/dL (75-110); SODIUM 141.1 mmol/L (137-145); TOTAL PROTEIN 6.2 g/dL (6.3-8.2)
[2018-03-07 03:10] LABS: HEMATOCRIT 32.6 % (36.0-47.0); HEMOGLOBIN 9.7 g/dL (12.0-15.5); MEAN CORPUSCULAR HEMOGLOBIN 28.3 pg (27.0-33.4); MEAN CORPUSCULAR HGB CONC 29.9 g/dL (32.0-36.0); PLATELET COUNT 196 10^3/uL (150-450); RED BLOOD COUNT 3.44 10^6/uL (3.72-5.28); RED CELL DISTRIBUTION WIDTH 19.8 % (11.5-14.0)
[2018-03-07 03:13] LABS: INTERNATIONAL RATION (INR) 3.23; PROTHROMBIN TIME 34.5 SEC (11.4-15.4)
[2018-03-07 03:14] LABS: MEAN CORPUSCULAR VOLUME 95 fl (80-97); WHITE BLOOD COUNT 25.4 10^3/uL (4.0-10.5)
[2018-03-07 03:29] LABS: ALANINE AMINOTRANSFERASE 2760 U/L (9-52); POTASSIUM 7.1 mmol/L (3.6-5.0)
[2018-03-07 03:30] LABS: CARBON DIOXIDE 8 mmol/L (22-30)
[2018-03-07 03:31] LABS: ASPARTATE AMINO TRANSFERASE 12803 U/L (14-36)
[2018-03-07 03:35] LABS: ANION GAP 24 (5-19)
[2018-03-07 03:37] LABS: ABSOLUTE LYMPHOCYTES# (MANUAL) 5.8 10^3/uL (0.5-4.7); ABSOLUTE MONOCYTES # (MANUAL) 1.5 10^3/uL (0.1-1.4); BAND NEUTROPHILS % (MANUAL) 3 % (3-5); BASOPHILS % (MANUAL) 0 % (0-2); EOSINOPHILS % (MANUAL) 0 % (0-6); LYMPHOCYTES % (MANUAL) 22 % (13-45); MONOCYTES % (MANUAL) 6 % (3-13); SEGMENTED NEUTROPHILS % (MAN) 68 % (42-78); TOTAL CELLS COUNTED 100; TOXIC GRANULATION 1+; TOXIC VACUOLATION PRESENT
[2018-03-07 03:38] LABS: ANISOCYTOSIS 2+; BURR CELLS 2+; PLATELET COMMENT ADEQUATE; PLATELET GIANT PRESENT; PLATELET LARGE PRESENT; POIKILOCYTOSIS 1+; POLYCHROMASIA SLIGHT; SCHISTOCYTES SLIGHT
[2018-03-07 06:12] VITALS: BP 76/51
[2018-03-07] MEDS: HEPARIN SOD (PORCINE) 5,000 UNIT/ML 1 ML SYRINGE SUBCUT SCH (06:39)
[2018-03-07] MEDS ORDERED: CEFTRIAXONE SODIUM 1,000 MG in NORMAL SALINE 50 ML IV SCH (08:00)
--- NOTE | 2018-03-07 08:26 | PDOC CONSULTATION ---
Consultation Consult Date: 03/06/18 Attending physician:: INDIA MEANS Consult reason:: Respiratory failure/sepsis History of Present Illness Admission Date/PCP: 03/06/18 08:16 SUSAN DUVALL PA-C History of Present Illness: NARGIS DUNLAP is a 77 year old female, presented to the emergency room confused and agitated and required sedation and intubation she is hypotensive and appeared to be in hepatic encephalopathy she is currently intubated in the ICU large lactic acidosis and elevated serum ammonia her coagulation studies and liver function tests are also elevated she said history of EtOH abuse Past Medical History Cardiac Medical History: Reports: Congestive Heart Failure, Hyperlipidema, Hypertension - on meds Denies: Coronary Artery Disease, Myocardial Infarction Pulmonary Medical History: Reports: Chronic Obstructive Pulmonary Disease (COPD ) - on meds Denies: Asthma, Bronchitis, Pneumonia Neurological Medical History: Denies: Seizures Endocrine Medical History: Reports: Diabetes Mellitus Type 2 GI Medical History: Denies: Hepatitis, Hiatal Hernia Musculoskeltal Medical History: Reports: Arthritis - Hands hx of Psychiatric Medical History: Reports: Depression Hematology: Denies: Anemia, Sickle Cell Disease Past Surgical History Past Surgical History: Reports: Cholecystectomy, Herniorrhaphy, Orthopedic Surgery Denies: Amputation, Mastectomy, Pacemaker Social History Information Source: [facility] Records Lives with: Family Smoking Status: Never Smoker Family History Parental Family History Reviewed: No Children Family History Reviewed: No Sibling(s) Family History Reviewed.: No Medication/Allergy Home Medications: Amlodipine Besylate [Norvasc 5 mg Tablet] 5 mg PO QPM 03/06/18 Atorvastatin Calcium [Lipitor 10 mg Tablet] 10 mg PO QPM 03/06/18 Benazepril HCl [Lotensin] 10 mg PO QAM 03/06/18 Cinnamon Bark [Cinnamon] 1,000 mg PO BID 03/06/18 Fluticasone/Salmeterol [Advair 500-50 Diskus 28 Dose] 1 inh IH Q12 03/06/18 Furosemide [Lasix 40 mg Tablet] 40 mg PO QAM 03/06/18 Glipizide [Glocotrol 5 Mg Tablet] 5 mg PO QPM 03/06/18 Glipizide [Glocotrol 5 Mg Tablet] 10 mg PO QAM 03/06/18 Linagliptin [Tradjenta] 5 mg PO QAM 03/06/18 Montelukast Sodium [Singulair 10 mg Tablet] 10 mg PO QPM 03/06/18 Multivit-Minerals/Folic Acid [One Daily Womens 50 Plus Tab] 0.4 mg PO DAILY 08/19 Rifaximin [Xifaxan 550 mg Tablet] 550 mg PO BID 03/06/18 Ropinirole HCl [Requip] 3 mg PO QPM 03/06/18 Spironolactone [Aldactone] 100 mg PO QAM 03/06/18 Tiotropium Grace [Spiriva Respimat] 4 gm IH DAILY 03/06/18 Venlafaxine HCl ER [Effexor Xr 75 mg Cap.sr] 75 mg PO Q12 03/06/18 Vit C/Vitamin E Acetate/Cranb [Cranberry+ Softgel] 1 each PO BID 03/06/18 Allergies/Adverse Reactions: ciprofloxacin [From Cipro] Allergy (Severe, Verified 02/27/18 09:35) Rash, itching citalopram hydrobromide [From Celexa] Allergy (Severe, Verified 02/27/18 09:35) Rash, itching clarithromycin [From Biaxin] Allergy (Severe, Verified 02/27/18 09:35) Rash, itching telmisartan [From Micardis] Allergy (Severe, Verified 02/27/18 09:35) Rash, itching Review of Systems ROS unobtainable: Due to endotracheal tube, Due to mental status Physical Exam Vital Signs: Temp Pulse Resp BP Pulse Ox 98.4 F 62 30 H 76/43 L 100 03/06/18 14:42 03/06/18 14:42 03/06/18 14:42 03/06/18 14:42 03/06/18 14:42 Intake & Output 03/05/18 03/06/18 03/07/18 06:59 06:59 06:59 Intake Total 1000 Balance 1000 Weight 104 kg General appearance: PRESENT: no acute distress, disheveled, morbidly obese. ABSENT: cooperative Head exam: PRESENT: atraumatic, normocephalic Eye exam: PRESENT: conjunctiva pale. ABSENT: nystagmus Mouth exam: PRESENT: dry mucosa, neck supple, tongue midline, other - ET tube in place Neck exam: ABSENT: carotid bruit, JVD, lymphadenopathy, thyromegaly, tracheal deviation, tracheostomy Respiratory exam: PRESENT: decreased breath sounds, prolonged expiratory phas, rales, rhonchi, tachypnea. ABSENT: retraction, stridor Cardiovascular exam: PRESENT: RRR, +S1, +S2 Pulses: PRESENT: normal radial pulses GI/Abdominal exam: PRESENT: distended Extremities exam: PRESENT: pedal edema. ABSENT: calf tenderness, clubbing, joint swelling Musculoskeletal exam: ABSENT: ambulatory, deformity, dislocation Neurological exam: ABSENT: awake Skin exam: PRESENT: dry, warm Results Laboratory Results: 03/06/18 03/06/18 11:40 13:39 Carbonic Acid 1.02 L HCO3/H2CO3 Ratio 13:1 ABG pH 7.22 L ABG pCO2 33.8 L ABG pO2 109.5 H ABG HCO3 13.4 L ABG O2 Saturation 97.1 ABG Base Excess -13.3 FiO2 15L Lactic Acid 9.4 H Impressions: Cervical Spine CT 03/06/18 04:26 IMPRESSION: 1. No acute fracture or dislocation of the cervical spine. 2. Multilevel degenerative changes. Head CT 03/06/18 04:26 IMPRESSION: 1. There is no evidence of acute intracranial pathology. 2. Mild cerebral atrophy with findings consistent with chronic microangiopathy. Overall, no significant change since the prior study. Chest X-Ray 03/06/18 04:27 IMPRESSION: 1. No acute pulmonary process identified. Assessment & Plan - Diagnosis (1) Lactic acidosis Is this a current diagnosis for this admission?: Yes (2) Altered mental status Qualifiers: Altered mental status type: unspecified Qualified Code(s): R41.82 - Altered mental status, unspecified Is this a current diagnosis for this admission?: Yes (3) Hepatic encephalopathy Is this a current diagnosis for this admission?: Yes (4) Urinary tract infection Qualifiers: Urinary tract infection type: site unspecified Hematuria presence: without hematuria Qualified Code(s): N39.0 - Urinary tract infection, site not specified Is this a current diagnosis for this admission?: Yes (6) Septic shock Is this a current diagnosis for this admission?: Yes Plan: Requiring multiple vasopressors - Time Total Critical Time (Minutes): 60
--- NOTE | 2018-03-07 08:52 | EKG REPORT ---
SEVERITY:- ABNORMAL ECG - ACCELERATED JUNCTIONAL ESCAPE RHYTHM RIGHT BUNDLE BRANCH BLOCK INFERIOR INFARCT, AGE INDETERMINATE CONSIDER ANTERIOR INFARCT, OLD : Confirmed by: Chuck Suero 07-Mar-2018 08:52:13
--- NOTE | 2018-03-07 08:52 | EKG REPORT ---
SEVERITY:- ABNORMAL ECG - ATRIAL FIBRILLATION MULTIFORM VENTRICULAR PREMATURE COMPLEXES NONSPECIFIC IVCD WITH LAD INFERIOR INFARCT, AGE INDETERMINATE : Confirmed by: Chuck Suero 07-Mar-2018 08:51:11
[2018-03-07] MEDS ORDERED: CEFTRIAXONE 1 GM/D5W RTU 1 GM/50 ML RTUPB IV SCH (10:00)
[2018-03-07] MEDS ORDERED: (PENDING PHARMACY ID) (Tiotropium Bromide [Spiriva Respimat] 4 GM) IH SCH (10:00)
== END 2018-03-07 04:12 | disposition left against medical advice (07) | DRG 871 ==
LOC: ER 03:58 → EH 08:16 → ICU 13:50
PROVIDERS: ADMIT Emergency Medicine; ATTEND Emergency Medicine
PROC: 02H633Z Insertion of Infusion Device into Right Atrium, Percutaneous Approach (ICD-10-PCS; principal; 2018-03-06)
PROC: B244ZZZ Ultrasonography of Right Heart (ICD-10-PCS; 2018-03-06)
PROC: 0BH17EZ Insertion of Endotracheal Airway into Trachea, Via Natural or Artificial Opening (ICD-10-PCS; 2018-03-06)
PROC: 5A1935Z Respiratory Ventilation, Less than 24 Consecutive Hours (ICD-10-PCS; 2018-03-06)
DX: A41.9 Sepsis, unspecified organism (principal); R65.21 Severe sepsis with septic shock; N39.0 Urinary tract infection, site not specified; N17.9 Acute kidney failure, unspecified; Z68.41 Body mass index [BMI] 40.0-44.9, adult; T36.6X6A Underdosing of rifampicins, initial encounter; E11.9 Type 2 diabetes mellitus without complications; K74.69 Other cirrhosis of liver; K72.90 Hepatic failure, unspecified without coma; I87.2 Venous insufficiency (chronic) (peripheral); E78.5 Hyperlipidemia, unspecified; I10 Essential (primary) hypertension; I50.9 Heart failure, unspecified; Z79.899 Other long term (current) drug therapy; J44.9 Chronic obstructive pulmonary disease, unspecified; M13.849 Other specified arthritis, unspecified hand; Z88.1 Allergy status to other antibiotic agents; Z88.8 Allergy status to other drugs, medicaments and biological substances; S40.811A Abrasion of right upper arm, initial encounter; W18.30XA Fall on same level, unspecified, initial encounter; Y92.003 Bedroom of unspecified non-institutional (private) residence as the place of occurrence of the external cause; Z78.1 Physical restraint status; Z90.49 Acquired absence of other specified parts of digestive tract; E66.01 Morbid (severe) obesity due to excess calories
CPT/HCPCS: 31500; 36415; 36556; 51701; 70450; 71045; 72125; 74176; 76937; 80053; 81001; 82140; 82272; 82550; 82553; 82570; 82803; 82962; 83605; 84300; 84484; 85025; 85610; 85730; 87040; 87086; 87088; 87186; 92950; 93005; 93010; 94002; 94003; 96374; 96375; 99285; C1751; J0171; J0330; J0461; J0610; J0696; J1630; J1644; J1940; J2060; J2250; J2354; J2370; J2405; J2543; J2704; J3010; J3370; J3490; J7040; J7060; S0164